=== PATIENT | male | born 1960 | race Caucasian/White ===

== ENCOUNTER 2017-12-20 07:58 | Emergency (ER) | payer BC ==
[2017-12-20 08:06] VITALS: BP 166/76
--- NOTE | 2017-12-20 08:48 | EDM.PDOC ---
ED HPI GENERAL MEDICAL PROBLEM - General Chief Complaint: Cardiovascular Problem Stated Complaint: SENT AFTER STRESS TEST Time Seen by Provider: 12/20/17 08:03 Source of Information: Reports: Patient, RN Notes Reviewed - History of Present Illness INITIAL COMMENTS - FREE TEXT/NARRATIVE: 57-year-old male has been sent over from cardiac stress lab for monitoring awaiting second part of his cardiac stress test this morning. He has been having chest pain off and on for the past several weeks primarily anterior chest without radiation, etiology unclear. EKG this morning showed about 2.[address] depression in several leads so even though he is currently asymptomatic it was felt he needed to be monitored very carefully while awaiting the remainder of his stress test this morning. He does have history of hypertension and type 2 diabetes. He states he's been under a lot of work stress this past month or so, not sleeping well, often awakening in the morning with anterior chest tightness and pressure especially after having a night of difficulty sleeping. No known history for coronary artery disease. He has been totally pain -free this morning. - Related Data Allergies Allergy/AdvReac Type Severity Reaction Status Date / Time acetaminophen [From Percocet] AdvReac Nausea and Verified 12/20/17 08:00 Vomiting oxycodone [From Percocet] AdvReac Nausea and Verified 12/20/17 08:00 Vomiting Home Meds: Home Meds Hydrochlorothiazide 12.5 mg PO DAILY 10/09/15 [History] Lisinopril 40 mg PO DAILY 10/09/15 [History] Potassium Chloride [Klor-Con M20] 20 meq PO DAILY 10/09/15 [History] Sildenafil [Viagra] 1 tab PO ASDIRECTED PRN 10/09/15 [History] buPROPion HCl [Bupropion Xl] 300 mg PO DAILY 10/09/15 [History] Acetaminophen/HYDROcodone [[place] 325-5 MG] 1 - 2 tab PO Q4H PRN #60 tablet 07/13 [Rx] Cyclobenzaprine [Flexeril] 10 mg PO TID PRN #40 tablet 07/13/16 [Rx] Docusate Sodium [Colace] 100 mg PO BID cap 07/13/16 [Rx] Multivitamins,Therapeutic [Thera] 1 each PO DAILY tablet 07/13/16 [Rx] Ondansetron [Zofran ODT] 4 mg PO Q6H PRN #30 tab.dis 07/13/16 [Rx] Rivaroxaban [Xarelto] 10 mg PO DAILY #33 tablet 07/13/16 [Rx] Past Medical History HEENT History: Reports: Epistaxis Other HEENT History: long time ago had issues , but nothing recently Cardiovascular History: Reports: High Cholesterol, Hypertension, Other (See Below) Other Cardiovascular History: 1st degree AV block, chest pain[denies], varicose veins Respiratory History: Reports: Sleep Apnea Gastrointestinal History: Reports: Hepatitis, Other (See Below) Other Gastrointestinal History: R inguinal hernia Genitourinary History: Reports: Renal Calculus Other Musculoskeletal History: L hip pain, Thumb repair Psychiatric History: Reports: Anxiety, Depression Other Psychiatric History: fatigue Endocrine/Metabolic History: Reports: Obesity/BMI 30+ Other Dermatologic History: rash - Infectious Disease History Infectious Disease History: Reports: None Other Infectious Disease History: pt. has hepatitis but unsure of the kind - Past Surgical History HEENT Surgical History: Reports: Adenoidectomy, Tonsillectomy Musculoskeletal Surgical History: Reports: Hip Replacement Social & Family History - Family History HEENT: Reports: Cataract, Impaired Vision Other HEENT Family History: cataract-mom, Respiratory: Reports: COPD Other Respiratory Family Hisory: dad GI: Reports: Cholelithiasis Other GI Family History: Mother-cholecyscetomy : Reports: UTI, Recurrent Other Family History: mom OBGYN: Reports: Other (See Below), Other OBGYN Family History: mother hysterectomy Endocrine/Metabolic: Reports: None Immunologic: Reports: None Oncologic: Reports: Bone, Lung Other Oncologic Family History: father - Tobacco Use Smoking Status *Q: Never Smoker Second Hand Smoke Exposure: No - Caffeine Use Caffeine Use: Reports: None - Alcohol Use Days Per Week of Alcohol Use: 3 Number of Drinks Per Day: 0 Total Drinks Per Week: 0 - Recreational Drug Use Recreational Drug Use: No Drug Use in Last 12 Months: No ED ROS GENERAL - Review of Systems Review Of Systems: See Below Constitutional: Denies: Fever, Chills, Diaphoresis HEENT: Denies: Throat Pain Respiratory: Denies: Shortness of Breath, Pleuritic Chest Pain Cardiovascular: Reports: Chest Pain (Frequent intermittent discomfort for the past several weeks, he has been pain-free this morning and continues to be pain- free at this time). Denies: Edema, Lightheadedness GI/Abdominal: Denies: Abdominal Pain, Nausea, Vomiting Musculoskeletal: Denies: Neck Pain, Shoulder Pain, Arm Pain, Back Pain, Leg Pain Skin: Reports: No Symptoms Neurological: Reports: No Symptoms ED EXAM, GENERAL - Physical Exam Exam: See Below General Appearance: Alert, No Apparent Distress Head: No: Facial Swelling Neck: Supple, Full Range of Motion Respiratory/Chest: No Respiratory Distress, Lungs Clear, Normal Breath Sounds Cardiovascular: Normal Peripheral Pulses, Regular Rate, Rhythm GI/Abdominal: Soft, Non-Tender Back Exam: No: CVA Tenderness (L), CVA Tenderness (R) Extremities: Normal Inspection. No: Pedal Edema, Leg Pain Neurological: Alert, Oriented, No Motor/Sensory Deficits Skin Exam: Warm, Dry, Normal Color Course - Vital Signs Last Recorded V/S: Last Vital Signs Temp 98.4 F 12/20/17 08:01 Pulse 78 12/20/17 08:01 Resp BP 166/76 H 12/20/17 08:01 Pulse Ox 97 12/20/17 08:01 - Re-Assessments/Exams Free Text/Narrative Re-Assessment/Exam: 12/20/17 08:48 monitoring and evaluation advisor shows sinus rhythm, rate in the mid to upper 70s, no ectopy. Departure - Departure Time of Disposition: 12:01 Disposition: Home, Self-Care 01 Condition: Fair Clinical Impression: Atypical chest pain Forms: ED Department Discharge Additional Instructions: Follow-up with Dr. Ferrell Monday as planned. He should be able to give you full test result information at that time, return to ED as needed for worsening chest discomfort or if symptoms otherwise worsening in any way.
== END 2017-12-20 12:05 | disposition home or self-care (01) ==
LOC: JD.ED 07:58
DX: R07.89 Other chest pain (principal); E78.00 Pure hypercholesterolemia, unspecified; I10 Essential (primary) hypertension; Z88.6 Allergy status to analgesic agent; Z88.5 Allergy status to narcotic agent; Z79.899 Other long term (current) drug therapy
CPT/HCPCS: 99283

== ENCOUNTER 2023-07-13 10:07 | Emergency (ER) | payer BC ==
[2023-07-13 10:21] VITALS: PULSE 58
[2023-07-13] MEDS ORDERED: Meclizine 25 MG Tab PO ONE (10:33)
[2023-07-13] MEDS ORDERED: cefTRIAXone 2 GM in Sodium Chloride 0.9% 100 ML IV ONE (10:34)
[2023-07-13 11:29] LABS: BASOPHILS PERCENT AUTO 0.4 % (0.0-1.0); EOSINOPHILS PERCENT AUTO 0.3 % (0.0-6.0); HEMOGLOBIN 15.7 gm/dl (14.0-18.0); IMMATURE GRAN ABSOLUTE AUTO 0.03 K/mm3 (0.00-0.05); IMMATURE GRAN PERCENT AUTO 0.4 % (0.0-0.4); LYMPHOCYTES ABSOLUTE AUTO 1.1 K/mm3 (1.0-4.8); LYMPHOCYTES PERCENT AUTO 13.8 % (24.0-44.0); MEAN CORPUSCULAR HEMOGLOBIN 29.7 pg (28.0-32.0); MEAN CORPUSCULAR HGB CONC 34.1 g/dl (32.0-36.0); MEAN CORPUSCULAR VOLUME 87.1 fl (83.0-99.0); MEAN PLATELET VOLUME 10.4 fl (9.4-12.4); MONOCYTES ABSOLUTE AUTO 0.3 K/mm3 (0.0-0.8); MONOCYTES PERCENT AUTO 4.2 % (0.0-8.0); NEUTROPHILS ABSOLUTE AUTO 6.2 K/mm3 (1.8-7.7); NEUTROPHILS PERCENT AUTO 80.9 % (41.0-71.0); PLATELET COUNT,PLT 179 K/mm3 (150-400); RED BLOOD CELL COUNT 5.28 M/mm3 (4.52-5.90); WHITE BLOOD CELL COUNT,WBC 7.69 K/mm3 (3.9-11.3)
[2023-07-13 11:56] LABS: A/G RATIO 1.2 (1-2); ALBUMIN 3.9 g/dl (3.4-5.0); ANION GAP 15.1 (5-15); BILIRUBIN TOTAL 0.6 mg/dL (0.2-1.0); BUN/CREATININE RATIO 12.3 (14-18); CALCIUM 9.4 mg/dL (8.5-10.1); CREATININE 1.3 mg/dL (0.7-1.3); EST CRCL DRUG DOSING (CG) 55.79 mL/min; POTASSIUM,K 3.1 mEq/L (3.5-5.1); PROTEIN TOTAL,TP 7.2 g/dl (6.4-8.2)
[2023-07-13 12:52] VITALS: BP 169/93
== END 2023-07-13 12:47 | disposition home or self-care (01) ==
LOC: JD.ED 10:07
DX: R42 Dizziness and giddiness (principal); I10 Essential (primary) hypertension; E78.00 Pure hypercholesterolemia, unspecified; E66.9 Obesity, unspecified; Z86.16 Personal history of COVID-19; Z79.82 Long term (current) use of aspirin; Z79.899 Other long term (current) drug therapy; Z88.5 Allergy status to narcotic agent
CPT/HCPCS: 36415; 70450; 80053; 84484; 85025; 93005; 99284; A9270; 93010